=== PATIENT | female | born 1975 | race Caucasian/White ===

== ENCOUNTER → 2018-06-08 08:15 | Outpatient (CLI) | payer OTHER, SELFPAY ==
--- NOTE | 2018-06-08 08:19 | MRI_ITS ---
STUDY: MRI RIGHT KNEE REASON FOR EXAM: Female, 43 years old. Left knee osteoarthritis. Chronic pain. Locking. TECHNIQUE: Standardized fat and water weighted pulse sequences were obtained in all 3 orthogonal planes. COMPARISON: None. FINDINGS: There is a 6 mm tear of the posterior horn of the medial meniscus extending to the inferior articular surface. Normal hyaline cartilage of the medial femorotibial compartment. Normal medial femoral condyle and tibial plateau. Normal medial collateral ligamentous complex (MCL). Normal distal semimembranosus, gracilis and semitendinosus tendons. Normal lateral meniscus. Normal hyaline cartilage of the lateral femorotibial compartment. Normal lateral femoral condyle and tibial plateau. Normal proximal tibiofibular articulation. Normal lateral collateral (fibular) ligament. Normal popliteus tendon. Normal biceps femoris tendon. Normal anterior cruciate ligament (ACL). Normal posterior cruciate ligament (PCL). Normal congruent patellofemoral articulation. Normal hyaline cartilage of the patellofemoral compartment. Normal medial and lateral patellar retinaculum. Normal quadriceps tendon. Normal patellar tendon. Normal Hoffa's fat pad. Trace joint effusion is noted. The soft tissues are unremarkable. The otherwise visualized osseous structures are unremarkable. MRI/Lower Ext Joint Only (Routine) IMPRESSION: 1. Small medial meniscus tear. 2. Trace joint effusion. Electronically Signed: Dimple Yan MD at 19:06 EDT Tel , Service support ,
== END ==
PROVIDERS: Family Provider Family Medicine; PCP Family Medicine; Referring Provider Physician Assistant; Visit Provider Physician Assistant
DX: M17.11 Unilateral primary osteoarthritis, right knee (principal)
CPT/HCPCS: 73721

== ENCOUNTER 2018-06-21 08:12 | Day surgery (SDC) | payer OTHER, SELFPAY ==
--- NOTE | 2018-06-14 08:08 | PCM.HP.BLA ---
History and Physical Date of Admission: 06/21/18 Francheska Chamberlain PA-C scribing a preoperative history and physical exam for Dr. Collins Mason Chief Complaint : RIGHT KNEE PAIN Standardized pain scale: Patient rates her present pain at: /10 History of Present Illness Patient states she is been having severe right knee pain for about 3 months. Pain has been getting progressively worse. This is despite nonoperative conservative treatment. She has been through physical therapy, ultrasound treatments, ice, pain patches, anti-inflammatories. She has locking of the right knee with primarily medial knee pain. Some posterior lateral pain as well. It feels like her knee was given at times. Pain is 8 out of 10 at times. Denies severe hip pain. History of back pain. She does not feel her back pain is related to her knee pain. History sheet, medication sheet, and vital signs were reviewed with the patient. Patient states that their primary care physician is aware of all significant abnormalities. Physical examination: Patient is healthy-appearing. They are alert and oriented x3 and cooperative with exam. Normal mood and affect. Pleasant during the exam. HEENT: Normocephalic, nontender. Pupils equal round and reactive. Extraocular movements intact. Nose and throat clear. No signs of dental infections. Neck: Supple, no JVD, no carotid bruits. No abnormal masses palpated Heart: Regular rate, rhythm. normal S1-S2, Lungs: Clear to auscultation Abdomen: Soft, nontender, positive bowel sounds. No abnormal masses palpated. Neuro: Normal DTR of the extremities. No significant muscle weakness or clonus or sensory deficits of the uninvolved extremities Extremities: Patient has pain on palpation to medial right joint line. Right knee pain medial with Kimberly or Tangela testing. Knee seems ligamentously stable. No calf pain. Negative Homans sign. No hip pain with motion. Legs are neurovascular intact. X-rays of the right knee shows mild joint space narrowing medially and laterally. No large bone spurs. No fractures or dislocations. MRI scan of the right knee June 08, 2018 [facility] reported as medial meniscus tear, small joint effusion Assessment: Right knee chronic pain, medial meniscus tear, arthritis #obesity Advance Care Plan: No Advance Directives Effective Date: 05/15/2018 PMH: Medical Problems: Asthma, Kidney Stones, Arthritis Accidents: Fracture - RT FOOT, LEFT 5TH FINGER Surgical Hx: Appendectomy - (1985) [facility] Tonsillectomy - (1982) [facility] Right Falopian Tube - (1996) REMOVAL Gallbladder - 1994,[facility] Stomach Adhesions Removed, Bilat Axilla Removal Of Sweat Glands Anesthesia Complications: Anesthesia Complications - HARD TIME WAKING UP Assistive Devices: Dentures, Glasses Reviewed, no changes. FH: Cancer - GRANDPARENT Heart Disease - GRANDPARENT High Blood Pressure - GRANDPARENT Stroke - GRANDPARENT. Father: Heart Disease, High Blood Pressure, Stroke, Cancer. Mother: Anesthesia Complications, Diabetes, High Blood Pressure. Children:3 Reviewed and updated. 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 Personal Habits: Cigarette Use: Currently smokes - 1 1/2 PK A DAY X 15 YR.. (Smokeless Tobacco). (Electronic Cigarette)Alcohol: Occasionally.Drug Use: Denies Use.Enjoy Exercising: Exercises 1-3 x/month. Reviewed, no changes. ROS: Const: Reports anxiety. CV: Denies chest pain, heart murmur, irregular heartbeat and peripheral vascular disease. Resp: Reports asthma, but denies cough, pneumonia, sleep apnea, shortness of breath, tuberculosis and wheezing. GI: Reports constipation, diarrhea and heartburn, but denies nausea, rectal itching, bloody stools and vomiting. : Reports menstruation problems. Denies incontinence. Musculo: Reports trouble walking and weakness, but denies leg swelling and pain. Skin: Reports tattoo, but denies Raynaud's and history of shingles. Neuro: Reports numbness/tingling but denies ambulatory dysfunction, dizziness and tremor. Psych: Reports anxiety and stress, but denies depression, insomnia and mental illness. Abe/Lymph: Reports bleeding/bruising tendency, but denies anemia and past transfusion. Reviewed, no changes. BP: 129/89 Pulse: 97 T: 97.7 T: 36.5C Current Meds: Cambridge 5-325 mg 1-2 by mouth every 6 hour as needed pain, Lodine 400 mg 1 by mouth twice a day, Ibuprofen 200 mg prn Assessment #1: Hx S83.241A Oth tear of medial meniscus, current injury, r knee, init Care Plan: Med New : Cambridge Med New : Cambridge 5-325 mg 1-2 by mouth every 6 hour as needed pain Recommendations: Her diagnosis and treatment options regarding her right knee pain, medial meniscus tear, arthritis discussed with her at length. She can do ice or heat or pain relieving ointments. She feels she is failed nonoperative treatment for her right knee. She would like to proceed with right knee arthroscopy. She understands we cannot guarantee this will completely resolve all of her knee pain. Risks of surgery that include but are not limited to: from operative or postoperative complications were explained. Risk of damage to nerves, arteries, or tendons, risk of infection, risk of blood clots, pulmonary embolism, amputation, and . They understand that there is a chance they may be worse after surgery than they are now. No guarantees were stated or implied. All of their questions were answered and appropriate informed consent was obtained and signed. N.p.o. status was explained. Appropriate preoperative workup was discussed and ordered if necessary. Anesthetic options were discussed.
--- NOTE | 2018-06-14 08:12 | HP.PCM_ITS ---
History and Physical Date of Admission: 06/21/18 Francheska Chamberlain PA-C scribing a preoperative history and physical exam for Dr. Collins Mason Chief Complaint : RIGHT KNEE PAIN Standardized pain scale: Patient rates her present pain at: /10 History of Present Illness Patient states she is been having severe right knee pain for about 3 months. Pain has been getting progressively worse. This is despite nonoperative conservative treatment. She has been through physical therapy, ultrasound treatments, ice, pain patches, anti-inflammatories. She has locking of the right knee with primarily medial knee pain. Some posterior lateral pain as well. It feels like her knee was given at times. Pain is 8 out of 10 at times. Denies severe hip pain. History of back pain. She does not feel her back pain is related to her knee pain. History sheet, medication sheet, and vital signs were reviewed with the patient. Patient states that their primary care physician is aware of all significant abnormalities. Physical examination: Patient is healthy-appearing. They are alert and oriented x3 and cooperative with exam. Normal mood and affect. Pleasant during the exam. HEENT: Normocephalic, nontender. Pupils equal round and reactive. Extraocular movements intact. Nose and throat clear. No signs of dental infections. Neck: Supple, no JVD, no carotid bruits. No abnormal masses palpated Heart: Regular rate, rhythm. normal S1-S2, Lungs: Clear to auscultation Abdomen: Soft, nontender, positive bowel sounds. No abnormal masses palpated. Neuro: Normal DTR of the extremities. No significant muscle weakness or clonus or sensory deficits of the uninvolved extremities Extremities: Patient has pain on palpation to medial right joint line. Right knee pain medial with Kimberly or Tangela testing. Knee seems ligamentously stable. No calf pain. Negative Homans sign. No hip pain with motion. Legs are neurovascular intact. X-rays of the right knee shows mild joint space narrowing medially and laterally. No large bone spurs. No fractures or dislocations. MRI scan of the right knee June 08, 2018 [facility] reported as medial meniscus tear, small joint effusion Assessment: Right knee chronic pain, medial meniscus tear, arthritis #obesity Advance Care Plan: No Advance Directives Effective Date: 05/15/2018 PMH: Medical Problems: Asthma, Kidney Stones, Arthritis Accidents: Fracture - RT FOOT, LEFT 5TH FINGER Surgical Hx: Appendectomy - (1985) [facility] Tonsillectomy - (1982) [facility] Right Falopian Tube - (1996) REMOVAL Gallbladder - 1994,[facility] Stomach Adhesions Removed, Bilat Axilla Removal Of Sweat Glands Anesthesia Complications: Anesthesia Complications - HARD TIME WAKING UP Assistive Devices: Dentures, Glasses Reviewed, no changes. FH: Cancer - GRANDPARENT Heart Disease - GRANDPARENT High Blood Pressure - GRANDPARENT Stroke - GRANDPARENT. Father: Heart Disease, High Blood Pressure, Stroke, Cancer. Mother: Anesthesia Complications, Diabetes, High Blood Pressure. Children:3 Reviewed and updated. 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 Personal Habits: Cigarette Use: Currently smokes - 1 1/2 PK A DAY X 15 YR.. (Smokeless Tobacco). (Electronic Cigarette)Alcohol: Occasionally.Drug Use: Denies Use.Enjoy Exercising: Exercises 1-3 x/month. Reviewed, no changes. ROS: Const: Reports anxiety. CV: Denies chest pain, heart murmur, irregular heartbeat and peripheral vascular disease. Resp: Reports asthma, but denies cough, pneumonia, sleep apnea, shortness of breath, tuberculosis and wheezing. GI: Reports constipation, diarrhea and heartburn, but denies nausea, rectal itching, bloody stools and vomiting. : Reports menstruation problems. Denies incontinence. Musculo: Reports trouble walking and weakness, but denies leg swelling and pain. Skin: Reports tattoo, but denies Raynaud's and history of shingles. Neuro: Reports numbness/tingling but denies ambulatory dysfunction, dizziness and tremor. Psych: Reports anxiety and stress, but denies depression, insomnia and mental illness. Abe/Lymph: Reports bleeding/bruising tendency, but denies anemia and past transfusion. Reviewed, no changes. BP: 129/89 Pulse: 97 T: 97.7 T: 36.5C Current Meds: Gilsum 5-325 mg 1-2 by mouth every 6 hour as needed pain, Lodine 400 mg 1 by mouth twice a day, Ibuprofen 200 mg prn Assessment #1: Hx S83.241A Oth tear of medial meniscus, current injury, r knee, init Care Plan: Med New : [place] Med New : Gil[place] 5-325 mg 1-2 by mouth every 6 hour as needed pain Recommendations: Her diagnosis and treatment options regarding her right knee pain, medial meniscus tear, arthritis discussed with her at length. She can do ice or heat or pain relieving ointments. She feels she is failed nonoperative treatment for her right knee. She would like to proceed with right knee arthroscopy. She understands we cannot guarantee this will completely resolve all of her knee pain. Risks of surgery that include but are not limited to: from operative or postoperative complications were explained. Risk of damage to nerves, arteries, or tendons, risk of infection, risk of blood clots, pulmonary embolism, amputation, and . They understand that there is a chance they may be worse after surgery than they are now. No guarantees were stated or implied. All of their questions were answered and appropriate informed consent was obtained and signed. N.p.o. status was explained. Appropriate preoperative workup was discussed and ordered if necessary. Anesthetic options were discussed.
[2018-06-21] VITALS (7 sets, daily range): BP systolic 122–166; BP diastolic 52–98; PULSE 65–86; RESP 16–18; TEMP 35.7–36.2; O2SAT 93–97; BMI 51.7
--- NOTE | 2018-06-21 10:01 | PCM.OP.PRO ---
Procedure Report Date of Procedure: 06/21/18 Preoperative diagnosis: Right knee medial meniscus tear Postoperative diagnosis : Same plus medial synovial plica Procedure: Diagnostic video arthroscopy, partial medial meniscectomy, plica excision Surgeon: Dr. Collins Mason Anesthesia: General Indications for surgery: Patient is a 43-year-old female with a history of right knee pain. Patient failed adequate nonoperative treatment for the knee pain. MRI findings discussed with patient. Due to persistent symptoms they wish to proceed with knee arthroscopy. Findings: Intraoperative findings were consistent with her preoperative history, physical, radiographic exam. She did have a tear of the medial meniscus. Primarily anterior horn. Also medial synovial plica. She underwent plica excision and partial medial meniscectomy. Details of procedure: Patient was taken to the OR transfer to the OR table. Nonoperative limb was appropriately padded, KIM hose and SCD applied. Patient was placed under the anesthetic agent. Operative knee was examined. No signs of infection. Operative upper thigh was well-padded and ultimately placed in a well-padded thigh be. Operative lower extremity was prepped and draped in usual orthopedic sterile fashion for the procedure. Local anesthetic agent was sterilely injected into the proposed arthroscopic portals. Lateral portal was established with a knife. Took us through skin only. Dull trocar took us into the joint. The scope was placed through the lateral portal. Medial portal and ultimately established using a spinal needle followed by a knife through skin, followed by a dull trocar into the joint. Probe was placed to the medial portal. Patellofemoral joint: No significant arthritis was noted. Patella tracked with some lateral translation. No abnormal tilt.. Medial synovial plica noted. Excised with a shaver. Arthroscopic pictures taken Medial and lateral gutter: No loose bodies or pathology noted. Intercondylar notch: ACL appeared within normal limits. Nice resting tension. No loose bodies or cystic changes noted. Medial compartment: Chondral surfaces were within normal limits. obvious medial meniscus tear noted anterior horn. No obvious significant posterior horn or mid meniscus tear noted. And compartment fully probed. Partial medial meniscectomy carried out with a shaver. Pictures taken. Lateral compartment: Chondral surfaces are within normal limits. No obvious lateral meniscus tear noted, and compartment fully probed Posterior medial compartment: No loose bodies or pathology noted. Posterior lateral compartment: No loose bodies or pathology noted. Arthroscopic pictures were taken and saved throughout the procedure. Knee was drained of excess fluid. Arthroscopic instruments were removed. Arthroscopic portals closed with simple sutures of 4-0 nylon. Knee joint injected with a combination of local anesthetic and Duramorph. sterile bandage was applied. Patient was transferred to the room bed and recovery room in satisfactory condition. They will be discharged to home when stable, follow-up in the office in 7-10 days. Patient and the family understand discharge instructions, all of their questions answered. This note was generated with [email or web address] dictation software. It may contain incorrect words, spelling, and punctuation that were not noted in checking the note before signing.
== END 2018-06-21 12:44 | disposition home or self-care (01) ==
LOC: SDC 08:13 → AC 08:14
PROVIDERS: Family Provider Family Medicine; PCP Family Medicine; Referring Provider Orthopaedic Surgery; Visit Provider Orthopaedic Surgery
PROC: (CPT 29870; principal; 2018-06-21 09:15)
DX: S83.241A Other tear of medial meniscus, current injury, right knee, initial encounter (principal); M67.51 Plica syndrome, right knee; M25.561 Pain in right knee; G89.29 Other chronic pain; M19.90 Unspecified osteoarthritis, unspecified site; E66.01 Morbid (severe) obesity due to excess calories; J45.909 Unspecified asthma, uncomplicated; F17.210 Nicotine dependence, cigarettes, uncomplicated
CPT/HCPCS: 29875; 29881; J7120; J2405